=== PATIENT | female | born 1960 | race Two or more races ===

== ENCOUNTER 2016-08-04 07:16 | Emergency (ER) | payer OTHER ==
[2016-08-04 08:38] LABS: CALCIUM 9.2 mg/dL (8.5-10.1); CARBON DIOXIDE 20.6 mmol/L (21-32); CHLORIDE SERUM 104 mmol/L (98-107); CREATININE SERUM 0.9 mg/dL (0.6-1.0); GFR1 > 60 mL/min; GLUCOSE SERUM 230 mg/dL (74-106); POTASSIUM SERUM 3.3 mmol/L (3.5-5.1); SODIUM SERUM 139 mmol/L (136-145)
[2016-08-04 08:43] LABS: ALKALINE PHOSPHATASE 135 U/L (46-116); ALT/SGPT 46 U/L (14-59); AMYLASE 34 U/L (25-115); AST/SGOT 23 U/L (15-37); LIPASE 86 IU/L (73-393); TOTAL PROTEIN, SERUM 7.2 g/dL (6.4-8.2)
[2016-08-04 09:03] LABS: PLATELET COUNT 326 x10^3mcL (130-400); RED CELL DISTRIBUTION WIDTH 13.8 % (11.5-14.5)
[2016-08-04 09:05] LABS: BASOPHIL % 0 % (0-2)
[2016-08-04 09:47] VITALS: BP 103/66
== END 2016-08-04 09:47 | disposition home or self-care (01) ==
LOC: ED 07:16
PROVIDERS: Emergency Medicine
DX: R10.13 Epigastric pain (principal); R11.2 Nausea with vomiting, unspecified; E11.9 Type 2 diabetes mellitus without complications
CPT/HCPCS: 83880; J1885; Q0092

== ENCOUNTER 2018-02-14 13:52 | Inpatient (IN) | payer OTHER ==
[~2018-02-14] VITALS: Ht 157.5 cm; Wt 89.5 kg
[2018-02-14 14:53] LABS: PLATELET COUNT 262 x10^3mcL (130-400); RED CELL DISTRIBUTION WIDTH 14.5 % (11.5-14.5)
[2018-02-14 15:17] LABS: CALCIUM 9.5 mg/dL (8.5-10.1); CARBON DIOXIDE 20.6 mmol/L (21-32); CHLORIDE SERUM 94 mmol/L (98-107); CREATININE SERUM 3.3 mg/dL (0.6-1.0); GFR1 15 mL/min; GLUCOSE SERUM 195 mg/dL (74-106); SODIUM SERUM 132 mmol/L (136-145)
[2018-02-14] MEDS ORDERED: LEVO-T100 MCG PO (15:17)
[2018-02-14] MEDS ORDERED: ATORVASTATIN CA40 M1 PO (15:18)
[2018-02-14] MEDS ORDERED: NOR5 PO (15:18)
[2018-02-14] MEDS ORDERED: METFORMIN HCL1000 MG PO (15:18)
[2018-02-14] MEDS ORDERED: NORCO1 TA2 PO (15:18)
[2018-02-14 15:19] LABS: ATYPICAL LYMPH 2 %; BAND NEUTROPHIL 8 % (0-10); BASOPHIL 0 % (0-2); MONOCYTE 5 % (0-7); PLATELET MORPHOLOGY PLATELETS NORMAL; SEGMENTED NEUTROPHILS 69 % (37-75); rbc morphology (normal/abnorm) NORMAL (NORMAL)
[2018-02-14] MEDS ORDERED: BENAZEPRIL HYDR20 M1 PO (15:19)
[2018-02-14] MEDS ORDERED: GABAPENTIN100 M2 PO (15:19)
[2018-02-14] MEDS ORDERED: BACLOFEN10 MG PO (15:19)
[2018-02-14] MEDS ORDERED: AMITRIPTYLINE H25 MG PO (15:20)
[2018-02-14] MEDS ORDERED: GLIPIZIDE10 M2 PO (15:20)
[2018-02-14] MEDS ORDERED: TRAMADOL HCL50 MG PO (15:20)
[2018-02-14] MEDS ORDERED: LANTUS SOLOS100 U/M1 (15:20)
[2018-02-14 15:21] LABS: ALKALINE PHOSPHATASE 119 U/L (46-116); ALT/SGPT 39 U/L (14-59); AST/SGOT 40 U/L (15-37); BILIRUBIN TOTAL 0.3 mg/dL (0.20-1.00); MAGNESIUM 1.4 mg/dL (1.8-2.4); TOTAL PROTEIN, SERUM 7.2 g/dL (6.4-8.2)
[2018-02-14 15:24] LABS: ALBUMIN 2.6 g/dL (3.4-5.0)
[2018-02-14 17:00] LABS: PHOSPHOROUS 3.8 mg/dL (2.5-4.9)
[2018-02-14 17:01] LABS: CHOLESTEROL/HDL RATIO 1.8
[2018-02-14 19:22] LABS: CALCIUM 8.6 mg/dL (8.5-10.1); CARBON DIOXIDE 19.6 mmol/L (21-32); CREATININE SERUM 3.2 mg/dL (0.6-1.0); POTASSIUM SERUM 5.3 mmol/L (3.5-5.1)
[2018-02-14 22:10] VITALS: BP 111/24
[2018-02-15] VITALS (18 sets, daily range): BP systolic 59–127; BP diastolic 24–87
[2018-02-15 01:34] LABS: UA SPECIFIC GRAVITY >=1.030 (1.005-1.035); microscopic required? YES; urine erythrocyte TRACE (NEGATIVE)
[2018-02-15 02:41] LABS: PLATELET COUNT 228 x10^3mcL (130-400); RED CELL DISTRIBUTION WIDTH 14.3 % (11.5-14.5)
[2018-02-15 02:53] LABS: CALCIUM 8.2 mg/dL (8.5-10.1); CARBON DIOXIDE 20.3 mmol/L (21-32); CREATININE SERUM 3.6 mg/dL (0.6-1.0); PHOSPHOROUS 6.5 mg/dL (2.5-4.9); POTASSIUM SERUM 5.4 mmol/L (3.5-5.1)
[2018-02-15 02:59] LABS: BAND NEUTROPHIL 24 % (0-10); BASOPHIL 0 % (0-2); MONOCYTE 2 % (0-7); PLATELET MORPHOLOGY PLATELETS NORMAL; SEGMENTED NEUTROPHILS 67 % (37-75); rbc morphology (normal/abnorm) NORMAL (NORMAL)
[2018-02-16] VITALS (19 sets, daily range): BP systolic 72–103; BP diastolic 53–72
[2018-02-16 05:37] LABS: PLATELET COUNT 174 x10^3mcL (130-400)
[2018-02-16 05:41] LABS: RED CELL DISTRIBUTION WIDTH 14.6 % (11.5-14.5)
[2018-02-16 06:02] LABS: CALCIUM 7.5 mg/dL (8.5-10.1); CARBON DIOXIDE 26.8 mmol/L (21-32); CREATININE SERUM 2.3 mg/dL (0.6-1.0); MAGNESIUM 1.9 mg/dL (1.8-2.4); PHOSPHOROUS 4.3 mg/dL (2.5-4.9)
[2018-02-16 06:11] LABS: BAND NEUTROPHIL 13 % (0-10); MONOCYTE 2 % (0-7); PLATELET MORPHOLOGY PLATELETS NORMAL; SEGMENTED NEUTROPHILS 80 % (37-75); rbc morphology (normal/abnorm) NORMAL (NORMAL)
[2018-02-17] VITALS (17 sets, daily range): BP systolic 90–138; BP diastolic 48–75
[2018-02-17 06:16] LABS: CALCIUM 7.4 mg/dL (8.5-10.1); CARBON DIOXIDE 29.2 mmol/L (21-32); CREATININE SERUM 3.4 mg/dL (0.6-1.0); MAGNESIUM 2.2 mg/dL (1.8-2.4); PHOSPHOROUS 3.8 mg/dL (2.5-4.9); POTASSIUM SERUM 3.7 mmol/L (3.5-5.1)
[2018-02-17 06:23] LABS: BASOPHIL % 0.1 % (0-2)
[2018-02-17 06:26] LABS: PLATELET COUNT 129 x10^3mcL (130-400); RED CELL DISTRIBUTION WIDTH 14.6 % (11.5-14.5)
[2018-02-18] VITALS (16 sets, daily range): BP systolic 81–133; BP diastolic 46–111
[2018-02-18 05:22] LABS: BASOPHIL % 0.1 % (0-2)
[2018-02-18 05:28] LABS: PLATELET COUNT 121 x10^3mcL (130-400); RED CELL DISTRIBUTION WIDTH 15.1 % (11.5-14.5)
[2018-02-18 05:29] LABS: CALCIUM 7.7 mg/dL (8.5-10.1); CARBON DIOXIDE 27.5 mmol/L (21-32); CREATININE SERUM 2.7 mg/dL (0.6-1.0); MAGNESIUM 1.8 mg/dL (1.8-2.4); PHOSPHOROUS 3.2 mg/dL (2.5-4.9); POTASSIUM SERUM 3.4 mmol/L (3.5-5.1)
[2018-02-19] VITALS (16 sets, daily range): BP systolic 83–110; BP diastolic 32–79
[2018-02-19 05:29] LABS: PLATELET COUNT 139 x10^3mcL (130-400)
[2018-02-19 05:56] LABS: CALCIUM 7.4 mg/dL (8.5-10.1); CARBON DIOXIDE 28.6 mmol/L (21-32); CREATININE SERUM 3.7 mg/dL (0.6-1.0); MAGNESIUM 1.9 mg/dL (1.8-2.4); PHOSPHOROUS 2.6 mg/dL (2.5-4.9); POTASSIUM SERUM 4.2 mmol/L (3.5-5.1)
[2018-02-19 06:02] LABS: BAND NEUTROPHIL 4 % (0-10); MONOCYTE 1 % (0-7); SEGMENTED NEUTROPHILS 81 % (37-75)
[2018-02-19 06:06] LABS: rbc morphology (normal/abnorm) NORMAL (NORMAL)
[2018-02-19 06:07] LABS: PLATELET MORPHOLOGY PLATELETS DECREASED
[2018-02-20] VITALS (19 sets, daily range): BP systolic 78–129; BP diastolic 43–86
[2018-02-20 05:20] LABS: BASOPHIL % 0.1 % (0-2); PLATELET COUNT 176 x10^3mcL (130-400)
[2018-02-20 05:24] LABS: RED CELL DISTRIBUTION WIDTH 14.7 % (11.5-14.5)
[2018-02-20 05:40] LABS: CALCIUM 7.2 mg/dL (8.5-10.1); CARBON DIOXIDE 29.1 mmol/L (21-32); CREATININE SERUM 2.2 mg/dL (0.6-1.0); MAGNESIUM 1.5 mg/dL (1.8-2.4); PHOSPHOROUS 2.2 mg/dL (2.5-4.9); POTASSIUM SERUM 3.8 mmol/L (3.5-5.1)
[2018-02-21] VITALS (19 sets, daily range): BP systolic 82–111; BP diastolic 47–74
[2018-02-21 05:19] LABS: PLATELET COUNT 174 x10^3mcL (130-400)
[2018-02-21 05:35] LABS: RED CELL DISTRIBUTION WIDTH 14.8 % (11.5-14.5)
[2018-02-21 06:02] LABS: MONOCYTE 3 % (0-7); SEGMENTED NEUTROPHILS 74 % (37-75)
[2018-02-21 06:03] LABS: BAND NEUTROPHIL 6 % (0-10); METAMYELOCTE 2 % (0-2)
[2018-02-21 06:05] LABS: PLATELET MORPHOLOGY PLATELETS NORMAL; rbc morphology (normal/abnorm) ABNORMAL (NORMAL)
[2018-02-21 06:24] LABS: CALCIUM 7.5 mg/dL (8.5-10.1); CARBON DIOXIDE 27.5 mmol/L (21-32); CREATININE SERUM 3.4 mg/dL (0.6-1.0); MAGNESIUM 2.6 mg/dL (1.8-2.4); PHOSPHOROUS 3.1 mg/dL (2.5-4.9); POTASSIUM SERUM 3.8 mmol/L (3.5-5.1)
[2018-02-22] VITALS (18 sets, daily range): BP systolic 94–151; BP diastolic 57–97
[2018-02-22 05:51] LABS: PLATELET COUNT 223 x10^3mcL (130-400)
[2018-02-22 05:52] LABS: RED CELL DISTRIBUTION WIDTH 14.9 % (11.5-14.5)
[2018-02-22 06:29] LABS: BAND NEUTROPHIL 5 % (0-10); MONOCYTE 5 % (0-7); SEGMENTED NEUTROPHILS 73 % (37-75)
[2018-02-22 06:30] LABS: PLATELET MORPHOLOGY PLATELETS NORMAL; rbc morphology (normal/abnorm) ABNORMAL (NORMAL)
[2018-02-22 06:40] LABS: CALCIUM 7.6 mg/dL (8.5-10.1); CREATININE SERUM 2.8 mg/dL (0.6-1.0); MAGNESIUM 2.1 mg/dL (1.8-2.4); POTASSIUM SERUM 3.4 mmol/L (3.5-5.1)
[2018-02-23] VITALS (19 sets, daily range): BP systolic 91–144; BP diastolic 53–108
[2018-02-23 05:47] LABS: BASOPHIL % 0.1 % (0-2); PLATELET COUNT 251 x10^3mcL (130-400)
[2018-02-23 05:49] LABS: CALCIUM 7.9 mg/dL (8.5-10.1); CARBON DIOXIDE 29.2 mmol/L (21-32); CREATININE SERUM 3.6 mg/dL (0.6-1.0); MAGNESIUM 2.1 mg/dL (1.8-2.4); PHOSPHOROUS 3.8 mg/dL (2.5-4.9); POTASSIUM SERUM 4.2 mmol/L (3.5-5.1)
[2018-02-23 10:36] LABS: BILIRUBIN DIRECT 0.15 mg/dL (0.0-0.2); BILIRUBIN TOTAL 0.2 mg/dL (0.20-1.00); TOTAL PROTEIN, SERUM 6.2 g/dL (6.4-8.2)
[2018-02-23 10:38] LABS: ALBUMIN 1.3 g/dL (3.4-5.0)
[2018-02-24] VITALS (15 sets, daily range): BP systolic 101–132; BP diastolic 64–80
[2018-02-24 05:03] LABS: CALCIUM 8.1 mg/dL (8.5-10.1); CARBON DIOXIDE 28.5 mmol/L (21-32); CREATININE SERUM 2.7 mg/dL (0.6-1.0); MAGNESIUM 1.7 mg/dL (1.8-2.4); PHOSPHOROUS 3.3 mg/dL (2.5-4.9); POTASSIUM SERUM 3.8 mmol/L (3.5-5.1)
[2018-02-24 05:23] LABS: BASOPHIL % 0.7 % (0-2); PLATELET COUNT 291 x10^3mcL (130-400); RED CELL DISTRIBUTION WIDTH 14.8 % (11.5-14.5)
[2018-02-25] VITALS (19 sets, daily range): BP systolic 109–146; BP diastolic 60–95
[2018-02-25 05:36] LABS: CALCIUM 8.1 mg/dL (8.5-10.1); CARBON DIOXIDE 30.8 mmol/L (21-32); CREATININE SERUM 2.3 mg/dL (0.6-1.0); MAGNESIUM 1.7 mg/dL (1.8-2.4); PHOSPHOROUS 3.6 mg/dL (2.5-4.9)
[2018-02-25 05:43] LABS: BASOPHIL % 0.5 % (0-2); PLATELET COUNT 336 x10^3mcL (130-400); RED CELL DISTRIBUTION WIDTH 14.8 % (11.5-14.5)
[2018-02-26] VITALS (17 sets, daily range): BP systolic 112–147; BP diastolic 70–112
[2018-02-26 05:24] LABS: BASOPHIL % 0.5 % (0-2); PLATELET COUNT 367 x10^3mcL (130-400); RED CELL DISTRIBUTION WIDTH 14.6 % (11.5-14.5)
[2018-02-26 05:43] LABS: CALCIUM 8.5 mg/dL (8.5-10.1); CREATININE SERUM 3.1 mg/dL (0.6-1.0); MAGNESIUM 1.6 mg/dL (1.8-2.4); PHOSPHOROUS 4.7 mg/dL (2.5-4.9); POTASSIUM SERUM 3.2 mmol/L (3.5-5.1)
[2018-02-27] VITALS (18 sets, daily range): BP systolic 11–138; BP diastolic 54–87
[2018-02-27 05:45] LABS: BASOPHIL % 1.7 % (0-2)
[2018-02-27 05:46] LABS: PLATELET COUNT 401 x10^3mcL (130-400)
[2018-02-27 06:15] LABS: CALCIUM 8.2 mg/dL (8.5-10.1); CARBON DIOXIDE 30.1 mmol/L (21-32); CREATININE SERUM 3.4 mg/dL (0.6-1.0); MAGNESIUM 1.8 mg/dL (1.8-2.4); PHOSPHOROUS 5.9 mg/dL (2.5-4.9); POTASSIUM SERUM 4.3 mmol/L (3.5-5.1)
[2018-02-28] VITALS (19 sets, daily range): BP systolic 85–118; BP diastolic 54–74
[2018-02-28 04:55] LABS: BASOPHIL % 0.6 % (0-2)
[2018-02-28 05:05] LABS: PLATELET COUNT 506 x10^3mcL (130-400); RED CELL DISTRIBUTION WIDTH 14.8 % (11.5-14.5)
[2018-02-28 05:08] LABS: CALCIUM 8.6 mg/dL (8.5-10.1); CARBON DIOXIDE 29.4 mmol/L (21-32); CREATININE SERUM 3.6 mg/dL (0.6-1.0); PHOSPHOROUS 6.4 mg/dL (2.5-4.9); POTASSIUM SERUM 4.2 mmol/L (3.5-5.1)
[2018-03-01] VITALS (19 sets, daily range): BP systolic 87–166; BP diastolic 47–90
[2018-03-01 05:24] LABS: BASOPHIL % 0.7 % (0-2); PLATELET COUNT 535 x10^3mcL (130-400); RED CELL DISTRIBUTION WIDTH 15.1 % (11.5-14.5)
[2018-03-01 05:29] LABS: CALCIUM 8.5 mg/dL (8.5-10.1); CARBON DIOXIDE 29.5 mmol/L (21-32); CREATININE SERUM 3.7 mg/dL (0.6-1.0); MAGNESIUM 2.1 mg/dL (1.8-2.4); PHOSPHOROUS 7.6 mg/dL (2.5-4.9); POTASSIUM SERUM 4.5 mmol/L (3.5-5.1)
[2018-03-02] VITALS (18 sets, daily range): BP systolic 81–167; BP diastolic 46–873; Ht 157.5 cm; Wt 89.5 kg
[2018-03-02 05:33] LABS: RED CELL DISTRIBUTION WIDTH 14.9 % (11.5-14.5)
[2018-03-02 05:34] LABS: CALCIUM 9.3 mg/dL (8.5-10.1); CREATININE SERUM 2.2 mg/dL (0.6-1.0); MAGNESIUM 1.9 mg/dL (1.8-2.4); PHOSPHOROUS 4.3 mg/dL (2.5-4.9); PLATELET COUNT 573 x10^3mcL (130-400); POTASSIUM SERUM 3.7 mmol/L (3.5-5.1)
[2018-03-03] VITALS (16 sets, daily range): BP systolic 78–141; BP diastolic 47–92
[2018-03-03 05:08] LABS: BASOPHIL % 0.5 % (0-2)
[2018-03-03 05:09] LABS: RED CELL DISTRIBUTION WIDTH 15.4 % (11.5-14.5)
[2018-03-03 05:16] LABS: CALCIUM 9.5 mg/dL (8.5-10.1); CARBON DIOXIDE 29.6 mmol/L (21-32); CREATININE SERUM 2.6 mg/dL (0.6-1.0); MAGNESIUM 1.9 mg/dL (1.8-2.4); PHOSPHOROUS 5.9 mg/dL (2.5-4.9); POTASSIUM SERUM 3.8 mmol/L (3.5-5.1)
[2018-03-03 08:50] LABS: PLATELET COUNT 585 x10^3mcL (130-400)
[2018-03-04] VITALS (17 sets, daily range): BP systolic 80–139; BP diastolic 47–87
[2018-03-04 05:25] LABS: BASOPHIL % 0.6 % (0-2)
[2018-03-04 05:30] LABS: PLATELET COUNT 577 x10^3mcL (130-400); RED CELL DISTRIBUTION WIDTH 15.5 % (11.5-14.5)
[2018-03-04 05:40] LABS: CALCIUM 8.7 mg/dL (8.5-10.1); CARBON DIOXIDE 26.7 mmol/L (21-32); MAGNESIUM 2.2 mg/dL (1.8-2.4); PHOSPHOROUS 7.4 mg/dL (2.5-4.9); POTASSIUM SERUM 4.5 mmol/L (3.5-5.1)
[2018-03-05] VITALS (15 sets, daily range): BP systolic 85–161; BP diastolic 41–121
[2018-03-05 05:51] LABS: RED CELL DISTRIBUTION WIDTH 15.8 % (11.5-14.5)
[2018-03-05 05:54] LABS: PLATELET COUNT 612 x10^3mcL (130-400)
[2018-03-05 05:56] LABS: CALCIUM 8.9 mg/dL (8.5-10.1); CARBON DIOXIDE 27.4 mmol/L (21-32); CREATININE SERUM 2.7 mg/dL (0.6-1.0); POTASSIUM SERUM 4.5 mmol/L (3.5-5.1)
[2018-03-05 06:25] LABS: BAND NEUTROPHIL 11 % (0-10); MONOCYTE 5 % (0-7); SEGMENTED NEUTROPHILS 61 % (37-75)
[2018-03-05 06:26] LABS: rbc morphology (normal/abnorm) ABNORMAL (NORMAL)
[2018-03-05 06:29] LABS: PLATELET MORPHOLOGY PLATELETS INCREASED
== END 2018-03-05 19:21 | DRG 4 ==
LOC: ED 13:52 → DU 16:25 → ED 16:25 → IC 16:25
PROVIDERS: Emergency Medicine; General Practice; Internal Medicine; Internal Medicine Nephrology; ADMIT Family Medicine
PROC: 5A1955Z Respiratory Ventilation, Greater than 96 Consecutive Hours (ICD-10-PCS; principal; 2018-02-14)
PROC: 0BH17EZ Insertion of Endotracheal Airway into Trachea, Via Natural or Artificial Opening (ICD-10-PCS; 2018-02-15)
PROC: 06HM33Z Insertion of Infusion Device into Right Femoral Vein, Percutaneous Approach (ICD-10-PCS; 2018-02-15)
PROC: 05HM33Z Insertion of Infusion Device into Right Internal Jugular Vein, Percutaneous Approach (ICD-10-PCS; 2018-02-15)
PROC: B543ZZA Ultrasonography of Right Jugular Veins, Guidance (ICD-10-PCS; 2018-02-15)
PROC: 05HN33Z Insertion of Infusion Device into Left Internal Jugular Vein, Percutaneous Approach (ICD-10-PCS; 2018-02-17)
PROC: B544ZZA Ultrasonography of Left Jugular Veins, Guidance (ICD-10-PCS; 2018-02-17)
PROC: 05HN33Z Insertion of Infusion Device into Left Internal Jugular Vein, Percutaneous Approach (ICD-10-PCS; 2018-02-19)
PROC: B544ZZA Ultrasonography of Left Jugular Veins, Guidance (ICD-10-PCS; 2018-02-19)
PROC: 0B110F4 Bypass Trachea to Cutaneous with Tracheostomy Device, Open Approach (ICD-10-PCS; 2018-03-04)
DX: A41.9 Sepsis, unspecified organism (principal); N17.0 Acute kidney failure with tubular necrosis; J96.01 Acute respiratory failure with hypoxia; E43 Unspecified severe protein-calorie malnutrition; G93.41 Metabolic encephalopathy; R65.21 Severe sepsis with septic shock; E87.1 Hypo-osmolality and hyponatremia; E11.65 Type 2 diabetes mellitus with hyperglycemia; J10.1 Influenza due to other identified influenza virus with other respiratory manifestations; E87.5 Hyperkalemia; Q90.9 Down syndrome, unspecified; I10 Essential (primary) hypertension; E78.00 Pure hypercholesterolemia, unspecified; E03.9 Hypothyroidism, unspecified; Z86.12 Personal history of poliomyelitis; Z79.4 Long term (current) use of insulin; Z68.31 Body mass index [BMI] 31.0-31.9, adult; Z79.84 Long term (current) use of oral hypoglycemic drugs
CPT/HCPCS: 36556; 36600; 82962; 86788; 86789; 87046; 87046-59; 87804; 90658; 90732; A4628; G0480; J0133; J0171; J0456; J0461; J0696; J1170; J1450; J1642; J1644; J1720; J1815; J1940; J2001; J2060; J2185 ×2; J2250; J2543; J2916; J3010; J3370; J3475; J3480; J3490; J7030; J7040; J7050; J7613; J7620; J7626; P9047; Q0092

== ENCOUNTER 2019-11-22 11:01 | Emergency (ER) | payer OTHER ==
[~2019-11-22] VITALS: Ht 157.5 cm; Wt 88.0 kg
[~2019-11-22 11:01] MED LIST: AMITRIPTYLINE H25 MG PO; ATORVASTATIN CA40 M1 PO; BACLOFEN10 MG PO; BENAZEPRIL HYDR20 M1 PO; GABAPENTIN100 M2 PO; GLIPIZIDE10 M2 PO; LANTUS SOLOS100 U/M1; LEVO-T100 MCG PO; METFORMIN HCL1000 MG PO; NOR5 PO; NORCO1 TA2 PO; TRAMADOL HCL50 MG PO
[2019-11-22 11:14] VITALS: Ht 157.5 cm; Wt 88.0 kg
[2019-11-22 13:55] VITALS: BP 141/98
[2019-11-22 16:44] LABS: APPEARANCE FLUID HAZY; COLOR FLUID PALE YELLOW; LYMPHOCYTE FLUID 62 %; MONOCYTE FLUID 6 %; RBC FLUID 233 /cumm; SOURCE FLUID SYNOVIAL FLUID; WBC FLUID 1310 /cumm
== END 2019-11-22 13:55 | disposition home or self-care (01) ==
LOC: ED 11:01
PROVIDERS: Emergency Medicine
DX: M25.462 Effusion, left knee (principal); M13.862 Other specified arthritis, left knee; E11.9 Type 2 diabetes mellitus without complications; E78.00 Pure hypercholesterolemia, unspecified; K21.9 Gastro-esophageal reflux disease without esophagitis
CPT/HCPCS: J2001; J3010; J3301; Q0092

== ENCOUNTER 2020-01-30 09:12 | Emergency (ER) | payer OTHER ==
[~2020-01-30] VITALS: Ht 165.1 cm; Wt 90.7 kg
[2020-01-30 09:24] VITALS: Ht 165.1 cm; Wt 90.7 kg
[2020-01-30 13:57] VITALS: BP 135/88
== END 2020-01-30 13:57 | disposition home or self-care (01) ==
LOC: ED 09:12
DX: M25.462 Effusion, left knee (principal); M54.42 Lumbago with sciatica, left side; E11.9 Type 2 diabetes mellitus without complications
CPT/HCPCS: J7512

== ENCOUNTER 2020-02-09 00:42 | Inpatient (IN) | payer OTHER, SELFPAY ==
[~2020-02-09] VITALS: Ht 157.5 cm; Wt 79.8 kg
[~2020-02-09 00:42] MED LIST changes: -BENAZEPRIL HYDR20 M1 PO; +LOTENSIN20 MG PO
[2020-02-09 01:50] VITALS: Ht 157.5 cm; Wt 79.8 kg
[2020-02-09 02:42] LABS: BASOPHIL % 0.4 % (0.2-1.3)
[2020-02-09 02:56] LABS: PLATELET COUNT 467 x10^3mcL (179-408); RED CELL DISTRIBUTION WIDTH 14.8 % (12.3-17.7)
[2020-02-09 03:06] LABS: ALKALINE PHOSPHATASE 118 U/L (46-116); ALT/SGPT 42 U/L (14-59); AST/SGOT 38 U/L (15-37); BILIRUBIN TOTAL 0.3 mg/dL (0.20-1.00); CALCIUM 9.5 mg/dL (8.5-10.1); CARBON DIOXIDE 23.1 mmol/L (21-32); CHLORIDE SERUM 104 mmol/L (98-107); GLUCOSE SERUM 154 mg/dL (74-106); LACTIC DEHYDROGENASE (LDH) 361 U/L (100-190); POTASSIUM SERUM 4.2 mmol/L (3.5-5.1); SODIUM SERUM 140 mmol/L (136-145)
[2020-02-09 03:12] LABS: TOTAL PROTEIN, SERUM 8.5 g/dL (6.4-8.2)
[2020-02-09 03:17] LABS: CREATININE SERUM 0.7 mg/dL (0.6-1.0); GFR1 > 60 mL/min
[2020-02-09 03:40] LABS: C REACTIVE PROTEIN 18.4 mg/dL (<=0.9)
[2020-02-09] MEDS ORDERED: OMEPRAZOLE MAGN20 M1 PO (03:45)
[2020-02-09] MEDS ORDERED: ALLERGY10 M2 PO (03:45)
[2020-02-09] MEDS ORDERED: VASCEPA1 GM PO (03:46)
[2020-02-09] MEDS ORDERED: ONGLYZA5 M1 PO (03:46)
[2020-02-09 07:02] LABS: CHOLESTEROL/HDL RATIO 2.6; MAGNESIUM 2.3 mg/dL (1.8-2.4); PHOSPHOROUS 2.9 mg/dL (2.5-4.9)
[2020-02-09 07:10] LABS: FREE T4 1.22 ng/dL (0.76-1.46); FREE THYROXINE INDEX 2.9 ug/dL (1.4-4.5); T4(THYROXINE) 9.1 ug/dL (4.7-13.3)
[2020-02-09 10:05] LABS: UA SPECIFIC GRAVITY 1.015 (1.005-1.035); microscopic required? YES; urine erythrocyte 1+ (NEGATIVE)
[2020-02-09 15:57] LABS: T3 TOTAL 1.1 ng/mL
[2020-02-10 06:26] LABS: BILIRUBIN DIRECT 0.09 mg/dL (0.0-0.2); BILIRUBIN TOTAL 0.26 mg/dL (0.20-1.00); TOTAL PROTEIN, SERUM 7.9 g/dL (6.4-8.2)
[2020-02-10 06:27] LABS: ALBUMIN 2.6 g/dL (3.4-5.0)
[2020-02-10 20:48] VITALS: BP 149/99
[2020-02-11 07:07] VITALS: BP 136/90
[2020-02-11 07:23] LABS: BILIRUBIN DIRECT 0.11 mg/dL (0.0-0.2); BILIRUBIN TOTAL 0.4 mg/dL (0.20-1.00); TOTAL PROTEIN, SERUM 8.1 g/dL (6.4-8.2)
[2020-02-11 07:27] LABS: ALBUMIN 2.9 g/dL (3.4-5.0)
[2020-02-11 07:40] LABS: CALCIUM 9.3 mg/dL (8.5-10.1); CARBON DIOXIDE 19.3 mmol/L (21-32); CHLORIDE SERUM 106 mmol/L (98-107); CREATININE SERUM 0.7 mg/dL (0.6-1.0); GFR1 > 60 mL/min; GLUCOSE SERUM 130 mg/dL (74-106); POTASSIUM SERUM 3.5 mmol/L (3.5-5.1); SODIUM SERUM 141 mmol/L (136-145)
[2020-02-11 08:15] VITALS: BP 136/83
[2020-02-11 08:25] LABS: BASOPHIL % 0.2 % (0.2-1.3); RED CELL DISTRIBUTION WIDTH 14.4 % (12.3-17.7)
[2020-02-11 12:18] VITALS: BP 141/82
[2020-02-11 13:23] LABS: PLATELET COUNT 628 x10^3mcL (179-408)
[2020-02-11 16:08] VITALS: BP 123/92
[2020-02-11 20:10] VITALS: BP 144/102
[2020-02-12 05:45] VITALS: BP 112/79
[2020-02-12 07:43] LABS: CALCIUM 9.1 mg/dL (8.5-10.1); CARBON DIOXIDE 23.3 mmol/L (21-32); CHLORIDE SERUM 107 mmol/L (98-107); CREATININE SERUM 0.7 mg/dL (0.6-1.0); GFR1 > 60 mL/min; GLUCOSE SERUM 78 mg/dL (74-106); POTASSIUM SERUM 3.8 mmol/L (3.5-5.1); SODIUM SERUM 141 mmol/L (136-145)
[2020-02-12 08:30] LABS: ALBUMIN 2.6 g/dL (3.4-5.0); BILIRUBIN DIRECT 0.08 mg/dL (0.0-0.2); BILIRUBIN TOTAL 0.2 mg/dL (0.20-1.00); TOTAL PROTEIN, SERUM 7.4 g/dL (6.4-8.2)
[2020-02-12 09:14] VITALS: BP 11/75
[2020-02-12 14:39] LABS: BAND NEUTROPHIL 4 % (0-10); METAMYELOCTE 1 % (0-2); MONOCYTE 9 % (0-7); PLATELET COUNT 592 x10^3mcL (179-408); PLATELET MORPHOLOGY PLATELETS INCREASED; SEGMENTED NEUTROPHILS 61 % (37-75); rbc morphology (normal/abnorm) NORMAL (NORMAL)
[2020-02-12 17:49] VITALS: BP 89/60
[2020-02-12 21:35] VITALS: BP 114/77
[2020-02-13 05:46] VITALS: BP 95/64
[2020-02-13 09:28] LABS: BASOPHIL % 0.2 % (0.2-1.3); RED CELL DISTRIBUTION WIDTH 14.4 % (12.3-17.7)
[2020-02-13 09:49] VITALS: BP 107/68
[2020-02-13 10:07] LABS: CALCIUM 9.2 mg/dL (8.5-10.1); CHLORIDE SERUM 108 mmol/L (98-107); CREATININE SERUM 0.7 mg/dL (0.6-1.0); GFR1 > 60 mL/min; GLUCOSE SERUM 119 mg/dL (74-106); POTASSIUM SERUM 4.3 mmol/L (3.5-5.1); SODIUM SERUM 142 mmol/L (136-145)
[2020-02-13 10:14] LABS: CARBON DIOXIDE 24.9 mmol/L (21-32)
[2020-02-13 10:45] LABS: BILIRUBIN DIRECT 0.08 mg/dL (0.0-0.2); BILIRUBIN TOTAL 0.3 mg/dL (0.20-1.00); TOTAL PROTEIN, SERUM 6.9 g/dL (6.4-8.2)
[2020-02-13 10:52] LABS: ALBUMIN 2.5 g/dL (3.4-5.0)
[2020-02-13 12:01] VITALS: BP 102/68
[2020-02-13 17:03] VITALS: BP 98/64
[2020-02-13 20:26] VITALS: BP 101/61
[2020-02-14 04:40] VITALS: BP 102/60
[2020-02-14 08:51] VITALS: BP 98/58
[2020-02-14 10:16] LABS: CALCIUM 9.5 mg/dL (8.5-10.1); CARBON DIOXIDE 22.9 mmol/L (21-32); CHLORIDE SERUM 109 mmol/L (98-107); CREATININE SERUM 0.6 mg/dL (0.6-1.0); GFR1 > 60 mL/min; GLUCOSE SERUM 125 mg/dL (74-106); POTASSIUM SERUM 4.1 mmol/L (3.5-5.1); SODIUM SERUM 142 mmol/L (136-145)
[2020-02-14 11:56] VITALS: BP 98/62
[2020-02-14 15:24] LABS: BASOPHIL % 0.4 % (0.2-1.3)
[2020-02-14 15:43] LABS: RED CELL DISTRIBUTION WIDTH 14.6 % (12.3-17.7)
[2020-02-14 16:25] VITALS: BP 100/70
[2020-02-14 16:50] LABS: PLATELET COUNT 686 x10^3mcL (179-408)
[2020-02-14 22:09] VITALS: BP 107/71
[2020-02-15 06:40] VITALS: BP 110/71
[2020-02-15 09:28] VITALS: BP 110/71
[2020-02-15 12:24] LABS: BASOPHIL % 0.3 % (0.2-1.3); RED CELL DISTRIBUTION WIDTH 14.5 % (12.3-17.7)
[2020-02-15 12:27] VITALS: BP 108/70
[2020-02-15 12:44] LABS: PLATELET COUNT 674 x10^3mcL (179-408)
[2020-02-15 12:54] LABS: CALCIUM 9.4 mg/dL (8.5-10.1); CHLORIDE SERUM 105 mmol/L (98-107); CREATININE SERUM 0.6 mg/dL (0.6-1.0); GFR1 > 60 mL/min; POTASSIUM SERUM 3.9 mmol/L (3.5-5.1); SODIUM SERUM 137 mmol/L (136-145)
[2020-02-15 13:35] LABS: CARBON DIOXIDE 23.2 mmol/L (21-32); GLUCOSE SERUM 204 mg/dL (74-106)
[2020-02-15 17:28] VITALS: BP 106/69
[2020-02-15 21:38] VITALS: BP 105/77
[2020-02-16 05:15] VITALS: BP 101/58
[2020-02-16 07:35] LABS: BASOPHIL % 0.4 % (0.2-1.3); RED CELL DISTRIBUTION WIDTH 14.1 % (12.3-17.7)
[2020-02-16 07:49] LABS: C REACTIVE PROTEIN 0.6 mg/dL (<=0.9); CALCIUM 9.6 mg/dL (8.5-10.1); CARBON DIOXIDE 23.4 mmol/L (21-32); CHLORIDE SERUM 107 mmol/L (98-107); CREATININE SERUM 0.6 mg/dL (0.6-1.0); GFR1 > 60 mL/min; GLUCOSE SERUM 125 mg/dL (74-106); POTASSIUM SERUM 3.5 mmol/L (3.5-5.1); SODIUM SERUM 140 mmol/L (136-145)
[2020-02-16 08:43] VITALS: BP 95/58
[2020-02-16] MEDS ORDERED: ELIQUIS2.5 MG PO (11:59)
[2020-02-16] MEDS ORDERED: ZES20 PO (12:00)
[2020-02-16] MEDS ORDERED: ZINC SULFATE220 MG PO (12:01)
[2020-02-16] MEDS ORDERED: MUCINEX600 MG PO (12:01)
[2020-02-16] MEDS ORDERED: METFORMIN HCL1000 MG PO (12:02)
[2020-02-16] MEDS ORDERED: DECADRON6 MG PO (12:02)
[2020-02-16] MEDS ORDERED: GLU10XL PO (12:03)
[2020-02-16] MEDS ORDERED: SYN1 PO (12:03)
[2020-02-16] MEDS ORDERED: D-10001 TAB PO (12:04)
[2020-02-16] MEDS ORDERED: VITC PO (12:04)
[2020-02-16] MEDS ORDERED: PRI20 PO (12:05)
[2020-02-16] MEDS ORDERED: PEP20 PO (12:05)
[2020-02-16 13:23] VITALS: BP 104/71
[2020-02-16 18:39] VITALS: BP 88/65
[2020-02-16 22:10] VITALS: BP 103/64
[2020-02-17 05:03] VITALS: BP 98/61
[2020-02-17 07:18] VITALS: BP 103/63
[2020-02-17 09:31] LABS: C REACTIVE PROTEIN 0.2 mg/dL (<=0.9); CALCIUM 10.2 mg/dL (8.5-10.1); CARBON DIOXIDE 24.4 mmol/L (21-32); CHLORIDE SERUM 106 mmol/L (98-107); CREATININE SERUM 0.7 mg/dL (0.6-1.0); GFR1 > 60 mL/min; GLUCOSE SERUM 99 mg/dL (74-106); POTASSIUM SERUM 4.4 mmol/L (3.5-5.1); SODIUM SERUM 141 mmol/L (136-145)
[2020-02-17 12:50] VITALS: BP 124/82
[2020-02-21 15:23] LABS: PLATELET COUNT 637 x10^3mcL (179-408)
[2020-02-21 15:40] LABS: PLATELET COUNT 651 x10^3mcL (179-408)
== END 2020-02-17 21:16 | disposition home or self-care (01) | DRG 871 ==
LOC: ED 00:42 → DU 02:48
PROVIDERS: Family Medicine; Specialist; ADMIT Internal Medicine; ATTEND Internal Medicine
PROC: XW033E5 Introduction of Remdesivir Anti-infective into Peripheral Vein, Percutaneous Approach, New Technology Group 5 (ICD-10-PCS; principal; 2020-02-10)
DX: A41.89 Other specified sepsis (principal); U07.1 COVID-19; J96.01 Acute respiratory failure with hypoxia; J12.82 Pneumonia due to coronavirus disease 2019; E44.1 Mild protein-calorie malnutrition; Z88.0 Allergy status to penicillin; E11.9 Type 2 diabetes mellitus without complications; I25.10 Atherosclerotic heart disease of native coronary artery without angina pectoris; I10 Essential (primary) hypertension; E78.00 Pure hypercholesterolemia, unspecified; K21.9 Gastro-esophageal reflux disease without esophagitis; E78.5 Hyperlipidemia, unspecified; D47.3 Essential (hemorrhagic) thrombocythemia; Z68.36 Body mass index [BMI] 36.0-36.9, adult
CPT/HCPCS: 36600; 82962; 83880; 84439; 85378; 87804; 97116-GP; 97530-GP; G0378; J0456; J1100; J1650; J1815; J2405; J3490; J7030; J7050; U0003